=== PATIENT | male | born 1970 | race African-American/Black ===

== ENCOUNTER 2022-03-18 14:40 | Emergency (ER) | payer MEDICARE, MEDICAID ==
[~2022-03-18] VITALS: Ht 175.3 cm; Wt 116.0 kg
[2022-03-18 14:42] VITALS: BP 120/100
[2022-03-18 15:47] LABS: BASOPHILS % 0.5 % (0.0-2.0); EOSINOPHILS % 9.3 % (0.0-5.0); HEMOGLOBIN. 13.1 g/dL (14.0-18.0); LYMPHOCYTES % 20.3 % (20.0-50.0); MEAN CORPUSCULAR HEMOGLOBIN 28.6 pg (28.0-32.0); MEAN CORPUSCULAR VOLUME 84.8 fL (80.0-94.0); MEAN PLATELET VOLUME 7.5 fl (7.4-10.4); NEUTROPHILS % 65.9 % (40.0-76.0); PLATELET 355 x1000/uL (130-400); RED CELL DISTRIBUTION WIDTH 14.7 % (11.6-14.6)
[2022-03-18 15:56] LABS: INR 0.9; PROTHROMBIN TIME 10.2 sec (9.6-11.0)
[2022-03-18 16:01] LABS: CHLORIDE 112 mEq/L (98-107)
== END 2022-03-18 20:00 | disposition left against medical advice (07) ==
LOC: ER 14:40
DX: R07.89 Other chest pain (principal); Z13.9 Encounter for screening, unspecified; Z53.21 Procedure and treatment not carried out due to patient leaving prior to being seen by health care provider
CPT/HCPCS: 36415; 71045; 80053; 84484; 85025; 93005; 99285

== ENCOUNTER 2022-04-12 18:02 | Inpatient (IN) | payer MEDICARE, MEDICAID ==
[~2022-04-12] VITALS: Ht 175.3 cm; Wt 109.8 kg
[2022-04-12] MEDS ORDERED: ASPIRIN 81MG TABLET PO ONE (18:15)
[2022-04-12 21:05] LABS: BASOPHILS % 0.6 % (0.0-2.0); EOSINOPHILS % 5.3 % (0.0-5.0); HEMATOCRIT. 40.6 % (42.0-52.0); HEMOGLOBIN. 13.8 g/dL (14.0-18.0); LYMPHOCYTES % 32.7 % (20.0-50.0); MEAN CORPUSCULAR HEMOGLOBIN 28.6 pg (28.0-32.0); MEAN PLATELET VOLUME 8.4 fl (7.4-10.4); MONOCYTES % 8.7 % (2.0-8.0); NEUTROPHILS % 52.7 % (40.0-76.0); PLATELET 307 x1000/uL (130-400); RED BLOOD CELL COUNT 4.83 mill/uL (4.7-6.1); RED CELL DISTRIBUTION WIDTH 14.5 % (11.6-14.6)
[2022-04-12 21:08] LABS: CHLORIDE 110 mEq/L (98-107)
[2022-04-12] MEDS: NITROGLYCERIN 0.4MG TABLET SL SL PRN (21:27)
[2022-04-12] MEDS ORDERED: ASPIRIN 81MG TABLET PO SCH (21:30)
[2022-04-12] MEDS ORDERED: MORPHINE SULFATE 4 MG/ML CPJ (NOT FOR IM USE) IV ONE (22:00)
[2022-04-12] MEDS ORDERED: MORPHINE SULFATE 4 MG/ML CPJ (NOT FOR IM USE) IV NR (23:45)
[2022-04-13] MEDS ORDERED: ZOLPIDEM TARTRATE 5MG TABLET PO NR (05:00)
[2022-04-13] MEDS: NITROGLYCERIN 0.4MG TABLET SL SL PRN (09:23)
[2022-04-13] MEDS ORDERED: DOCUSATE SODIUM 100MG CAPSULE PO PRN (11:30)
[2022-04-13] MEDS ORDERED: ACETAMINOPHEN 325MG TABLET PO PRN (11:30)
[2022-04-13] MEDS ORDERED: ONDANSETRON HCL 4MG/2ML INJ IV PRN (11:30)
[2022-04-13] MEDS ORDERED: GUAIFENESIN 200MG/10ML SUGAR FREE UDC PO PRN (11:30)
[2022-04-13] MEDS ORDERED: LORAZEPAM 0.5MG TABLET PO PRN (11:30)
[2022-04-13] MEDS ORDERED: CLONIDINE 0.1MG TABLET PO PRN (11:30)
[2022-04-13] MEDS ORDERED: HYDROMORPHONE HCL/PF 2MG/ML CPJ IV PRN (11:30)
[2022-04-13] MEDS: ENOXAPARIN 40MG/0.4ML SYR SUBCUT SCH (13:41)
[2022-04-13] MEDS ORDERED: DEXTROSE 50% WATER 50ML SYRINGE IV PRN (13:45)
[2022-04-13] MEDS ORDERED: NALOXONE HCL 0.4MG/ML VIAL IV PRN (15:00)
[2022-04-13] MEDS: MORPHINE SULFATE 2 MG/ML CPJ (NOT FOR IM USE) IV PRN ×3 (15:13→20:11)
[2022-04-13] MEDS: BLOOD SUGAR DIAGNOSTIC STRIP TEST SCH ×2 (16:44→22:00)
[2022-04-13] MEDS: INSULIN LISPRO 100 UNITS/ML SUBCUT SCH ×2 (16:57→21:00)
[2022-04-13 18:26] LABS: CLARITY URINE CLEAR (CLEAR); COLOR URINE YELLOW (YELLOW); KETONES URINE NEGATIVE (NEGATIVE); LEUKOCYTE ESTERASE URINE NEGATIVE (NEGATIVE); NITRITE URINE NEGATIVE (NEGATIVE); OCCULT BLOOD URINE NEGATIVE (NEGATIVE); PH URINE 6.5 (4.5-8.0); PROTEIN URINE NEGATIVE (NEGATIVE); SPECIFIC GRAVITY URINE 1.021 (1.005-1.030); UROBILINOGEN URINE 0.2 E.U./dL (0.2-1.0)
[2022-04-13 18:45] LABS: *AMPHETAMINES SCREEN URINE NEGATIVE (NEGATIVE); *BARBITURATES SCREEN URINE NEGATIVE (NEGATIVE); *BENZODIAZEPINES SCREEN URINE NEGATIVE (NEGATIVE); *COCAINE SCREEN URINE NEGATIVE (NEGATIVE); CANNABINOID URINE SCREEN NEGATIVE (NEGATIVE); METHADONE URINE SCREEN NEGATIVE (NEGATIVE); OPIATES URINE SCREEN PRESUMTIVE POSITIVE (NEGATIVE); PHENCYCLIDINE URINE SCREEN NEGATIVE (NEGATIVE)
[2022-04-13 21:08] LABS: CHLORIDE 106 mEq/L (98-107)
[2022-04-13 21:17] LABS: CREATINE KINASE 101 IU/L (39-308)
[2022-04-13] MEDS: ATORVASTATIN CALCIUM 20MG TABLET PO SCH (21:59)
[2022-04-13 22:30] VITALS: BP 134/64
[2022-04-14] VITALS: BP 130/88
[2022-04-14] MEDS ORDERED: LITH300C3 PO (00:12)
[2022-04-14] MEDS ORDERED: ATOR10TA PO (00:15)
[2022-04-14] MEDS ORDERED: METF-416 PO (00:15)
[2022-04-14] MEDS ORDERED: BUPR150T3 PO (00:15)
[2022-04-14] MEDS ORDERED: QUET300T2 PO (00:15)
[2022-04-14 00:38] LABS: CREATINE KINASE 99 IU/L (39-308)
[2022-04-14] MEDS: MORPHINE SULFATE 2 MG/ML CPJ (NOT FOR IM USE) IV PRN ×2 (01:04→10:23)
[2022-04-14 04:00] VITALS: BP 127/66
[2022-04-14] MEDS: INSULIN LISPRO 100 UNITS/ML SUBCUT SCH ×4 (06:25→20:52)
[2022-04-14] MEDS: BLOOD SUGAR DIAGNOSTIC STRIP TEST SCH ×4 (06:25→20:51)
[2022-04-14 06:47] LABS: BASOPHILS % 0.5 % (0.0-2.0); HEMATOCRIT. 38.7 % (42.0-52.0); HEMOGLOBIN. 13.2 g/dL (14.0-18.0); LYMPHOCYTES % 24.1 % (20.0-50.0); MEAN CORPUSCULAR HEMOGLOBIN 28.9 pg (28.0-32.0); MEAN CORPUSCULAR VOLUME 84.9 fL (80.0-94.0); MEAN PLATELET VOLUME 8.4 fl (7.4-10.4); MONOCYTES % 8.2 % (2.0-8.0); NEUTROPHILS % 62.2 % (40.0-76.0); PLATELET 252 x1000/uL (130-400); RED BLOOD CELL COUNT 4.56 mill/uL (4.7-6.1); RED CELL DISTRIBUTION WIDTH 14.6 % (11.6-14.6)
[2022-04-14 07:19] LABS: CHLORIDE 108 mEq/L (98-107)
[2022-04-14 07:39] LABS: T4 FREE 0.83 ng/dL (0.76-1.46)
[2022-04-14 08:00] VITALS: BP_SYST 113; BP_SYST 137; BP_DIAS 58; BP_DIAS 86
[2022-04-14] MEDS: ASPIRIN 81MG EC TABLET PO SCH (08:39)
[2022-04-14] MEDS: LISINOPRIL 5MG TABLET PO SCH (09:00)
[2022-04-14 12:00] VITALS: BP 121/62
[2022-04-14] MEDS ORDERED: NITROGLYCERIN SPRAY/4.9GM CAN TL NR (12:30)
[2022-04-14] MEDS: ENOXAPARIN 40MG/0.4ML SYR SUBCUT SCH (13:23)
[2022-04-14] MEDS: CLOPIDOGREL 75MG TABLET PO SCH (13:24)
[2022-04-14] MEDS ORDERED: IOHEXOL-350 100 ML BOTTLE ONE (13:52)
[2022-04-14 16:00] VITALS: BP 110/81
[2022-04-14] MEDS: OXYCODONE HCL 10MG TABLET SR 12HR PO PRN (17:24)
[2022-04-14] MEDS: BUPROPION HCL 150MG SR TABLET PO SCH (17:24)
[2022-04-14 17:55] LABS: CREATINE KINASE MB FRACTION 1.9 ng/mL (0.5-3.6)
[2022-04-14 20:00] VITALS: BP_SYST 112; BP_SYST 122; BP_SYST 146; BP_DIAS 65; BP_DIAS 76; BP_DIAS 82
[2022-04-14] MEDS: ATORVASTATIN CALCIUM 20MG TABLET PO SCH (20:50)
[2022-04-14] MEDS: LITHIUM CARBONATE 150 MG CAPSULE PO SCH (20:50)
[2022-04-14] MEDS: QUETIAPINE FUMARATE 50MG TABLET PO SCH (20:51)
[2022-04-14] MEDS ORDERED: PNEUMOCOCCAL 23-VAL P-SAC VAC 0.5 ML IM ONE (21:00)
[2022-04-14] MEDS ORDERED: INFLUENZA VACCINE 05/PF 0.5 ML SYRINGE IM ONE (21:00)
[2022-04-14] MEDS ORDERED: OXYCODONE HCL 10MG TABLET SR 12HR PO SCH (22:00)
[2022-04-14] MEDS ORDERED: OXYCODONE HCL 10MG TABLET SR 12HR PO PRN (22:00)
[2022-04-14 23:30] LABS: CREATINE KINASE MB FRACTION 1.8 ng/mL (0.5-3.6)
[2022-04-15] VITALS: BP 114/67
[2022-04-15] MEDS: OXYCODONE HCL 10MG TABLET SR 12HR PO PRN (01:13)
[2022-04-15 04:00] VITALS: BP 116/68
[2022-04-15] MEDS: ENOXAPARIN 30MG/0.3ML SYR SUBCUT SCH ×2 (05:38→18:07)
[2022-04-15] MEDS: BLOOD SUGAR DIAGNOSTIC STRIP TEST SCH ×4 (05:49→21:00)
[2022-04-15] MEDS: INSULIN LISPRO 100 UNITS/ML SUBCUT SCH ×4 (05:49→21:04)
[2022-04-15 06:41] LABS: BASOPHILS % 0.7 % (0.0-2.0); HEMATOCRIT. 39.4 % (42.0-52.0); HEMOGLOBIN. 13.3 g/dL (14.0-18.0); LYMPHOCYTES % 32.1 % (20.0-50.0); MEAN CORPUSCULAR HEMOGLOBIN 28.5 pg (28.0-32.0); MEAN CORPUSCULAR VOLUME 84.3 fL (80.0-94.0); MEAN PLATELET VOLUME 8.5 fl (7.4-10.4); MONOCYTES % 7.8 % (2.0-8.0); NEUTROPHILS % 54.4 % (40.0-76.0); PLATELET 271 x1000/uL (130-400); RED BLOOD CELL COUNT 4.67 mill/uL (4.7-6.1); RED CELL DISTRIBUTION WIDTH 14.6 % (11.6-14.6)
[2022-04-15] MEDS: ASPIRIN 81MG EC TABLET PO SCH (08:02)
[2022-04-15] MEDS: LITHIUM CARBONATE 150 MG CAPSULE PO SCH ×2 (08:02→20:49)
[2022-04-15] MEDS: CLOPIDOGREL 75MG TABLET PO SCH (08:02)
[2022-04-15] MEDS: BUPROPION HCL 150MG SR TABLET PO SCH ×2 (08:02→18:06)
[2022-04-15] MEDS: LISINOPRIL 5MG TABLET PO SCH (08:07)
[2022-04-15 08:37] LABS: CHLORIDE 107 mEq/L (98-107)
[2022-04-15 09:00] LABS: CREATINE KINASE 83 IU/L (39-308); CREATINE KINASE MB FRACTION 1.6 ng/mL (0.5-3.6)
[2022-04-15] MEDS: OXYCODONE HCL/ACETAMINOPHEN 5/325MG TABLET PO PRN ×3 (09:36→21:38)
[2022-04-15 15:43] VITALS: BP_SYST 108; BP_SYST 116; BP_SYST 121; BP_DIAS 67; BP_DIAS 83; BP_DIAS 84
[2022-04-15 20:00] VITALS: BP 113/67
[2022-04-15] MEDS: ATORVASTATIN CALCIUM 10MG TABLET PO SCH (20:48)
[2022-04-15] MEDS: QUETIAPINE FUMARATE 50MG TABLET PO SCH (20:48)
[2022-04-16] VITALS: BP 118/68
[2022-04-16 04:00] VITALS: BP 94/56
[2022-04-16] MEDS: OXYCODONE HCL/ACETAMINOPHEN 5/325MG TABLET PO PRN ×3 (04:32→19:02)
[2022-04-16] MEDS: ENOXAPARIN 30MG/0.3ML SYR SUBCUT SCH ×2 (06:00→19:23)
[2022-04-16 06:39] LABS: CHLORIDE 106 mEq/L (98-107)
[2022-04-16 07:04] LABS: BASOPHILS % 0.6 % (0.0-2.0); HEMATOCRIT. 37.9 % (42.0-52.0); HEMOGLOBIN. 13.1 g/dL (14.0-18.0); LYMPHOCYTES % 36.8 % (20.0-50.0); MEAN CORPUSCULAR HEMOGLOBIN 29.3 pg (28.0-32.0); MEAN PLATELET VOLUME 8.3 fl (7.4-10.4); MONOCYTES % 10.4 % (2.0-8.0); NEUTROPHILS % 46.2 % (40.0-76.0); PLATELET 270 x1000/uL (130-400); RED BLOOD CELL COUNT 4.46 mill/uL (4.7-6.1); RED CELL DISTRIBUTION WIDTH 14.5 % (11.6-14.6)
[2022-04-16] MEDS: BLOOD SUGAR DIAGNOSTIC STRIP TEST SCH ×4 (07:10→20:00)
[2022-04-16 08:00] VITALS: BP 147/88
[2022-04-16] MEDS ORDERED: NICARDIPINE 100MCG/ML 10ML VIAL (CATH LAB) IV ONE (08:00)
[2022-04-16] MEDS: ASPIRIN 81MG EC TABLET PO SCH ×2 (09:00→19:16)
[2022-04-16] MEDS: CLOPIDOGREL 75MG TABLET PO SCH ×2 (09:00→19:16)
[2022-04-16] MEDS: LITHIUM CARBONATE 150 MG CAPSULE PO SCH ×2 (10:19→20:26)
[2022-04-16] MEDS: BUPROPION HCL 150MG SR TABLET PO SCH ×2 (10:19→19:21)
[2022-04-16] MEDS: LISINOPRIL 5MG TABLET PO SCH (10:21)
[2022-04-16 12:00] VITALS: BP 147/94
[2022-04-16] MEDS: INSULIN LISPRO 100 UNITS/ML SUBCUT SCH ×4 (12:40→20:27)
[2022-04-16] MEDS ORDERED: DIPHENHYDRAMINE 50MG/ML VIAL ONE (13:35)
[2022-04-16] MEDS ORDERED: VERAPAMIL HCL 2.5 MG/1 ML 2ML VIAL IV ONE (13:35)
[2022-04-16] MEDS ORDERED: MIDAZOLAM HCL 2 MG/2 ML VIAL ONE (13:58)
[2022-04-16] MEDS ORDERED: FENTANYL CITRATE/PF 50MCG/ML 2ML VIAL ONE (13:58)
[2022-04-16] MEDS ORDERED: ATROPINE SULFATE 1MG/10ML SYR IV PRN (15:45)
[2022-04-16 16:00] VITALS: BP 120/84
[2022-04-16 20:00] VITALS: BP 127/88
[2022-04-16] MEDS: ATORVASTATIN CALCIUM 10MG TABLET PO SCH (20:26)
[2022-04-16] MEDS: QUETIAPINE FUMARATE 50MG TABLET PO SCH (20:26)
[2022-04-17] VITALS: BP 94/56
[2022-04-17] MEDS: OXYCODONE HCL/ACETAMINOPHEN 5/325MG TABLET PO PRN ×3 (02:00→14:07)
[2022-04-17 04:00] VITALS: BP 124/73
[2022-04-17] MEDS: BLOOD SUGAR DIAGNOSTIC STRIP TEST SCH ×2 (05:57→12:05)
[2022-04-17] MEDS: ENOXAPARIN 30MG/0.3ML SYR SUBCUT SCH (05:57)
[2022-04-17] MEDS: INSULIN LISPRO 100 UNITS/ML SUBCUT SCH ×2 (06:20→12:05)
[2022-04-17 06:58] LABS: CHLORIDE 105 mEq/L (98-107)
[2022-04-17 07:06] LABS: BASOPHILS % 0.6 % (0.0-2.0); EOSINOPHILS % 6.3 % (0.0-5.0); HEMATOCRIT. 40.2 % (42.0-52.0); HEMOGLOBIN. 13.5 g/dL (14.0-18.0); LYMPHOCYTES % 27.8 % (20.0-50.0); MEAN CORPUSCULAR HEMOGLOBIN 28.6 pg (28.0-32.0); MEAN CORPUSCULAR VOLUME 85.4 fL (80.0-94.0); MEAN PLATELET VOLUME 8.3 fl (7.4-10.4); MONOCYTES % 9.3 % (2.0-8.0); PLATELET 280 x1000/uL (130-400); RED BLOOD CELL COUNT 4.71 mill/uL (4.7-6.1); RED CELL DISTRIBUTION WIDTH 14.3 % (11.6-14.6)
[2022-04-17 08:00] VITALS: BP 132/75
[2022-04-17] MEDS: CLOPIDOGREL 75MG TABLET PO SCH (08:00)
[2022-04-17] MEDS: LITHIUM CARBONATE 150 MG CAPSULE PO SCH (08:00)
[2022-04-17] MEDS: ASPIRIN 81MG EC TABLET PO SCH (08:00)
[2022-04-17] MEDS: BUPROPION HCL 150MG SR TABLET PO SCH (08:00)
[2022-04-17] MEDS: LISINOPRIL 5MG TABLET PO SCH (08:01)
[2022-04-17] MEDS ORDERED: ISOS30TA91 PO (10:18)
[2022-04-17] MEDS ORDERED: AMLO2.5T45 PO (10:18)
[2022-04-17 10:36] VITALS: BP 132/75
[2022-04-17] MEDS ORDERED: IBUP-2030 PO (10:57)
[2022-04-17] MEDS ORDERED: IBUPROFEN 800MG TABLET PO PRN (11:00)
[2022-04-17 12:00] VITALS: BP 119/72
[2022-04-17 14:07] VITALS: BP 119/72
[2022-04-18] MEDS ORDERED: AMLODIPINE 2.5MG TABLET PO SCH (09:00)
[2022-04-18] MEDS ORDERED: ISOSORBIDE MONONITRATE 30MG TABLET SR 24HR PO SCH ×2 (09:00)
== END 2022-04-17 15:20 | disposition home or self-care (01) | DRG 287 ==
LOC: ER 18:02 → EDBEDREQ 04-13 00:07 → MICUSO 04-13 01:16 → 8WST 04-13 22:33
PROVIDERS: ADMIT Internal Medicine; ATTEND Internal Medicine
PROC: 4A023N7 Measurement of Cardiac Sampling and Pressure, Left Heart, Percutaneous Approach (ICD-10-PCS; principal; 2022-04-16)
PROC: B211YZZ Fluoroscopy of Multiple Coronary Arteries using Other Contrast (ICD-10-PCS; 2022-04-16)
PROC: B215YZZ Fluoroscopy of Left Heart using Other Contrast (ICD-10-PCS; 2022-04-16)
DX: I25.110 Atherosclerotic heart disease of native coronary artery with unstable angina pectoris (principal); I10 Essential (primary) hypertension; E11.9 Type 2 diabetes mellitus without complications; E78.5 Hyperlipidemia, unspecified; Z20.822 Contact with and (suspected) exposure to COVID-19; F43.10 Post-traumatic stress disorder, unspecified; F31.9 Bipolar disorder, unspecified; F17.210 Nicotine dependence, cigarettes, uncomplicated; G89.29 Other chronic pain; R00.1 Bradycardia, unspecified; E78.00 Pure hypercholesterolemia, unspecified; Z79.899 Other long term (current) drug therapy; I25.2 Old myocardial infarction; Z88.0 Allergy status to penicillin; Z79.82 Long term (current) use of aspirin; Z95.5 Presence of coronary angioplasty implant and graft; Z63.4 Disappearance and death of family member
CPT/HCPCS: 36415; 71045; 75571; 80048; 80053; 80061; 80178; 80305; 81003; 82550; 82553; 82962; 83036; 83880; 84439; 84443; 84484; 85025; 85379; 87426; 90686; 90732; 93005; 93306; 93458; 93880; 93970; 97163; 97166; 99285; C1769; C1887; C1893; J1200; J1650; J1815; J2250; J2270; J3010; J3490; Q9967